=== PATIENT | female | born 1980 | race Caucasian/White ===

== ENCOUNTER 2020-03-22 21:16 | Inpatient (IN) | payer MEDICAID ==
[~2020-03-22] VITALS: Ht 167.6 cm; Wt 84.1 kg
[~2020-03-22 21:16] MED LIST: ARIP20TA5 PO; CITA10TA8 PO; LISD70CA5 PO; RIVA20TA PO
--- NOTE | 2020-03-22 21:30 | NUR ---
INITIAL PT CONTACT. PT PRESENTS TO ED C/O VOMITING BLOOD AND NAUSEA. BLOOD IS "BRIGHT RED" AND SOME DARKNESS IN STOOL NOTED. STARTED ABOUT 2 HOURS AGO. "I HAVE NOT BEEN TAKING REALLY GOOD CARE OF MYSELF RECENTLY, I HAVEN'T BEEN EATING MUCH. BOTH MY PARENTS UNEXPECTEDLY RECENTLY, IT HAS BEEN HARD ON ME". CURRENTLY TAKING ABX FOR A TOOTH ABCESS. PT SITTING UPRIGHT ON GURNEY, NADN, VSS. WARM BLANKET PROVIDED. PT DENIES ANY ADDITIONAL NEEDS AT THIS TIME. CALL LIGHT AND PERSONAL BELONGINGS WITHIN REACH.
--- NOTE | 2020-03-22 21:38 | NUR ---
ERP AT BEDSIDE
[2020-03-22 21:57] LABS: BASOPHILS % (AUTO) 0 % (0-1); EOSINOPHILS % (AUTO) 3 % (1-7); LYMPHOCYTES % (AUTO) 21 % (22-44); MEAN CORPUSCULAR HEMOGLOBIN 30.5 pg (27.0-34.8); MEAN CORPUSCULAR HGB CONC 33.5 g/dL (32.4-35.8); MEAN PLATELET VOLUME 6.4 fL (7.4-10.4); MONOCYTES % (AUTO) 10 % (2-9); NEUTROPHILS % (AUTO) 66 % (42-75); PLATELET COUNT 366 x10^3/uL (130-400); RED BLOOD COUNT 3.55 x10^6/uL (3.82-5.3); RED CELL DISTRIBUTION WIDTH 21.2 % (9.6-15.2)
[2020-03-22] MEDS ORDERED: ONDANSETRON 2MG/ML, 2ML ONE (21:59)
[2020-03-22] MEDS ORDERED: ONDANSETRON 2MG/ML, 2ML IVPush ONE (22:00)
[2020-03-22] MEDS ORDERED: PANTOPRAZOLE 80 MG in SODIUM CHLORIDE 0.9% 50 ML IVPB ONE (22:00)
[2020-03-22 22:04] LABS: ALANINE AMINOTRANSFERASE 175 U/L (12-78); ALBUMIN 3.2 g/dL (3.4-5.0); ANION GAP 11 mmol/L (5-15); CALCIUM 7.8 mg/dL (8.5-10.1); CHLORIDE 102 mmol/L (98-107); CREATININE 0.52 mg/dL (0.55-1.02)
--- NOTE | 2020-03-22 22:05 | NUR ---
PIV INSERTION PER ERP ORDER, MEDICATED PER EMAR. PT TOLERATED WELL. PT SITTING UPRIGHT ON GURNEY, NADN, VSS. PT DENIES ANY ADDITIONAL NEEDS AT THIS TIME. CALL LIGHT IN REACH.
[2020-03-22 22:06] LABS: INTERNATIONAL NORMALIZED RATIO 0.99 (0.93-1.1); PROTHROMBIN TIME 10.6 Seconds (9.6-11.5)
[2020-03-22 22:07] LABS: ALKALINE PHOSPHATASE 139 U/L (45-117); BILIRUBIN,TOTAL 0.6 mg/dL (0.2-1.0); TOTAL PROTEIN 6.8 g/dL (6.4-8.2)
[2020-03-22 22:24] LABS: ANISOCYTOSIS 1+; MD MORPH REVIEW ONLY
[2020-03-22 22:25] LABS: <PLATELET ESTIMATE> ADEQUATE; OVALOCYTES 1+; POLYCHROMASIA 1+; SMALL PLATELETS 1+
--- NOTE | 2020-03-22 22:37 | NUR ---
PT UP TO BATHROOM WITH STEADY GAIT. PT DENIES ANY ADDITIONAL NEEDS AT THIS TIME.
[2020-03-22] MEDS ORDERED: LURA20TA PO (22:56)
[2020-03-22] MEDS ORDERED: ONDANSETRON 2MG/ML, 2ML IVPush PRN (23:00)
--- NOTE | 2020-03-22 23:07 | NUR ---
Pt to be admitted to [facility], room 405. Report called to PRIMO.
[2020-03-22 23:34] VITALS: BP 121/80
[2020-03-23] MEDS ORDERED: LORazepam 2 MG/ML, 1ML IV PRN ×5 (00:30)
[2020-03-23] MEDS ORDERED: MELATONIN 5 MG TABLET PO PRN (00:30)
[2020-03-23] MEDS ORDERED: LIDODERM 5% PATCH TD PRN (00:30)
[2020-03-23] MEDS ORDERED: FOLIC ACID 1 MG TABLET PO ONE (00:30)
[2020-03-23] MEDS ORDERED: THIAMINE 200 MG in DEXTROSE 5% 50 ML IVPB ONE (00:30)
[2020-03-23] MEDS ORDERED: ONDANSETRON 2MG/ML, 2ML IVPush PRN (00:30)
[2020-03-23] MEDS ORDERED: BISACODYL 10 MG SUPP PR PRN (00:30)
[2020-03-23] MEDS ORDERED: ALUMINUM/MAG/SIMETHICONE 30 ML UDC PO PRN (00:30)
[2020-03-23 01:28] VITALS: BP 120/80
[2020-03-23] MEDS: CEFTRIAXONE PMX 1GM/50ML 50 ML IV SCH (02:01)
[2020-03-23] MEDS: PANTOPRAZOLE 80 MG in SODIUM CHLORIDE 0.9% 100 ML IV SCH ×2 (02:34→13:54)
[2020-03-23 04:36] LABS: BASOPHILS % (AUTO) 1 % (0-1); EOSINOPHILS % (AUTO) 3 % (1-7); LYMPHOCYTES % (AUTO) 23 % (22-44); MEAN CORPUSCULAR HEMOGLOBIN 30.6 pg (27.0-34.8); MEAN CORPUSCULAR HGB CONC 33.8 g/dL (32.4-35.8); MEAN PLATELET VOLUME 6.6 fL (7.4-10.4); MONOCYTES % (AUTO) 14 % (2-9); NEUTROPHILS % (AUTO) 60 % (42-75); PLATELET COUNT 357 x10^3/uL (130-400); RED BLOOD COUNT 3.28 x10^6/uL (3.82-5.3); RED CELL DISTRIBUTION WIDTH 21.2 % (9.6-15.2)
[2020-03-23 04:42] LABS: MD NO
[2020-03-23 04:43] LABS: ALBUMIN 2.9 g/dL (3.4-5.0); ANION GAP 8 mmol/L (5-15); CHLORIDE 106 mmol/L (98-107)
[2020-03-23 04:47] LABS: ALANINE AMINOTRANSFERASE 149 U/L (12-78); ALKALINE PHOSPHATASE 123 U/L (45-117); BILIRUBIN,TOTAL 0.6 mg/dL (0.2-1.0); CREATININE 0.51 mg/dL (0.55-1.02); TOTAL PROTEIN 6.2 g/dL (6.4-8.2)
[2020-03-23 06:40] VITALS: BP 126/79
[2020-03-23] MEDS: LACTOBACILLUS CHEW TABLET PO SCH ×3 (08:08→20:16)
[2020-03-23 12:38] VITALS: BP 132/82
[2020-03-23] MEDS: SODIUM CHLORIDE 0.9% 1,000 ML IV SCH (12:43)
[2020-03-23] MEDS ORDERED: NICOTINE 21 MG/24 HR PATCH.TD24 TD ONE (13:30)
[2020-03-23 19:50] VITALS: BP 127/84
[2020-03-24] MEDS: PANTOPRAZOLE 80 MG in SODIUM CHLORIDE 0.9% 100 ML IV SCH (00:02)
[2020-03-24] MEDS: CEFTRIAXONE PMX 1GM/50ML 50 ML IV SCH (00:03)
[2020-03-24] MEDS: SODIUM CHLORIDE 0.9% 1,000 ML IV SCH (01:25)
[2020-03-24 02:03] VITALS: BP 118/73
[2020-03-24 04:29] LABS: BASOPHILS % (AUTO) 1 % (0-1); EOSINOPHILS % (AUTO) 3 % (1-7); LYMPHOCYTES % (AUTO) 29 % (22-44); MEAN CORPUSCULAR HEMOGLOBIN 30.2 pg (27.0-34.8); MEAN CORPUSCULAR HGB CONC 32.9 g/dL (32.4-35.8); MEAN PLATELET VOLUME 6.7 fL (7.4-10.4); MONOCYTES % (AUTO) 13 % (2-9); NEUTROPHILS % (AUTO) 54 % (42-75); PLATELET COUNT 343 x10^3/uL (130-400); RED BLOOD COUNT 3.11 x10^6/uL (3.82-5.3); RED CELL DISTRIBUTION WIDTH 21.5 % (9.6-15.2)
[2020-03-24 04:35] LABS: MD NO
[2020-03-24 04:37] LABS: ALANINE AMINOTRANSFERASE 115 U/L (12-78); ALBUMIN 2.8 g/dL (3.4-5.0); ANION GAP 6 mmol/L (5-15); CALCIUM 7.8 mg/dL (8.5-10.1); CHLORIDE 107 mmol/L (98-107); IRON LEVEL 32 mcg/dL (50-170)
[2020-03-24 04:41] LABS: % IRON SATURATION 9 % (20-55); ALKALINE PHOSPHATASE 110 U/L (45-117); BILIRUBIN,TOTAL 0.6 mg/dL (0.2-1.0); TOTAL IRON BINDING CAPACITY 360 mcg/dL (250-450)
[2020-03-24 06:57] VITALS: BP 106/64
[2020-03-24] MEDS ORDERED: CHLORHEXIDINE 15 ML UDC ONE (07:59)
[2020-03-24] MEDS ORDERED: PROPOFOL 50 ML ONE (08:00)
[2020-03-24] MEDS ORDERED: ONDANSETRON 2MG/ML, 2ML IVPush PRN (08:30)
[2020-03-24] MEDS: LACTOBACILLUS CHEW TABLET PO SCH (09:39)
[2020-03-24] MEDS ORDERED: SUCR1TAB33 PO (10:29)
[2020-03-24] MEDS ORDERED: ACID1TAB7 PO (10:29)
[2020-03-24] MEDS ORDERED: OMEP-110 PO (10:29)
[2020-03-24] MEDS ORDERED: SUCRALFATE 1 GM TABLET PO SCH (11:00)
[2020-03-24 12:11] VITALS: BP 117/80
[2020-03-24] MEDS ORDERED: OMEPRAZOLE 20 MG CAPSULE.DR PO SCH (16:00)
== END 2020-03-24 12:49 | disposition home or self-care (01) | DRG 378 ==
LOC: ED 23:00 → EDIP 23:04 → 4WST 23:15 → DCLOUNGE 03-24 12:44
PROVIDERS: ADMIT Family Medicine; ATTEND Internal Medicine
PROC: 0DJ08ZZ Inspection of Upper Intestinal Tract, Via Natural or Artificial Opening Endoscopic (ICD-10-PCS; principal; 2020-03-24 08:00)
DX: K29.21 Alcoholic gastritis with bleeding (principal); D62 Acute posthemorrhagic anemia; F31.9 Bipolar disorder, unspecified; F90.9 Attention-deficit hyperactivity disorder, unspecified type; F17.210 Nicotine dependence, cigarettes, uncomplicated; G47.00 Insomnia, unspecified; K70.10 Alcoholic hepatitis without ascites; E83.51 Hypocalcemia; G47.30 Sleep apnea, unspecified; F10.120 Alcohol abuse with intoxication, uncomplicated; G43.909 Migraine, unspecified, not intractable, without status migrainosus; K04.7 Periapical abscess without sinus; Y90.6 Blood alcohol level of 120-199 mg/100 ml; M19.90 Unspecified osteoarthritis, unspecified site; Z98.84 Bariatric surgery status; Z79.899 Other long term (current) drug therapy; Z80.0 Family history of malignant neoplasm of digestive organs; Z83.3 Family history of diabetes mellitus; Z81.1 Family history of alcohol abuse and dependence; Z79.01 Long term (current) use of anticoagulants
CPT/HCPCS: 36415; 76700; 80053; 80074; 80320; 82330; 83540; 83550; 83735; 84703; 85014; 85018; 85025; 85610; 86850; 86900; 87635; 96374; 96375; 99285; G0378; J0696; J2405; J2704; J3411; C9113; G0480; J7030